=== PATIENT | female | born 1970 ===

== ENCOUNTER 2017-08-06 12:01 | Day surgery (SDC) | payer OTHER ==
[2017-08-02 09:23] VITALS: BMI 21.9
[2017-08-06 12:53] VITALS: O2SAT 100
[2017-08-06] MEDS ORDERED: ceFAZolin IV 2 gm in Dextrose 0 GM/0 ML BAG IVPB ONE (14:43)
[2017-08-06] MEDS ORDERED: Lidocaine 1% Inj (20ml) ONE (14:43)
[2017-08-06] MEDS ORDERED: Lactated Ringer's 1,000 ML IV ONE (15:00)
[2017-08-06] MEDS ORDERED: ceFAZolin IV 1 gm in Dextrose 1 GM/50 ML BAG IVPB ONE (15:01)
[2017-08-06] MEDS ORDERED: Bupivacaine HCl 0.25% PF (10 ml) Inj ONE (15:01)
[2017-08-06] MEDS: Bupivacaine HCl 0.25% PF (10 ml) Inj ONE ×2 (15:15→15:25)
[2017-08-06] MEDS ORDERED: Propofol 10 mg/ml Inj (20 ML) ONE (15:28)
[2017-08-06] MEDS ORDERED: Midazolam 2 MG/2 ML VIAL ONE (15:28)
[2017-08-06] MEDS ORDERED: HYDROmorphone 0.5 mg/0.5 ml ISec IVP PRN (15:40)
[2017-08-06] MEDS ORDERED: Oxycodone/Acetaminophen 5/325 mg Tab PO PRN (16:24)
[2017-08-06 17:00] VITALS: RESP 18
[2017-08-06 17:43] VITALS: BP 148/81; PULSE 111; TEMP 97.7
--- NOTE | 2017-08-07 01:52 | OP ---
PROCEDURE DATE: 08/06/2017 PREOPERATIVE DIAGNOSIS: Small rectal tumor. POSTOPERATIVE DIAGNOSIS: Small rectal tumor. PROCEDURE PERFORMED: 1. Transanal excision (full-thickness) of rectal tumor (58250). 2. Repair of pudendal blood vessel (95545). 3. Advancement flap closure 10 sq cm (37562). SURGEON: Jorge Alfonso MD ANESTHESIA: General endotracheal. ESTIMATED BLOOD LOSS: 30 mL. POSTOPERATIVE CONDITION: Stable. INDICATIONS FOR SURGERY: A 47-year-old female with rectal pain, found to have a small mass near the anal verge on physical examination in the office, taken to the OR for examination anesthesia with excision of any abnormal findings. GROSS FINDINGS: There was a 2-cm rectal tumor/polyp approximately 2-cm above the anal verge, which was posterior. It was excised via elliptical full thickness excision. There were no other abnormal findings. PROCEDURE: The patient taken to the operating room, general anesthesia was administered. She was placed in the lithotomy position. The rectal area was prepped and draped and anoscopy was performed with the above findings. The mass was grasped with Allis clamp and a full-thickness excision was done using the Bovie. The bleeding pudendal blood vessel was repaired. Generous tissue flaps were raised and an advancement flap closure was performed with multiple layers of running Monocryl. The wound was found to be hemostatic. The patient tolerated procedure well. Returned to recovery room in stable condition. Jorge Alfonso MD
== END 2017-08-06 17:30 | disposition home or self-care (01) ==
LOC: EDBD → C.SDS 12:01
PROVIDERS: ATTEND Surgery
DX: D37.5 Neoplasm of uncertain behavior of rectum (principal)
CPT/HCPCS: 14000; 45172; J0690; J2250; J2405; J2704; J3010; J7120